=== PATIENT | male | born 1995 | race Caucasian/White ===

== ENCOUNTER 2018-02-21 14:47 | Emergency (ER) | payer BC ==
[2018-02-21] MEDS ORDERED: Ketorolac Tromethamine 30 MG/ML VIAL ONE (16:53)
[2018-02-21 17:03] LABS: #Lymphocytes 0.4 thou/uL (1.20-3.40); #Monocytes 0.3 thou/uL (0.11-0.59); %Basophils 0.4 % (0.0-1.0); %Eosinophils 0.2 % (0.0-10.0); %Lymphocytes 4.6 % (21.0-51.0); %Monocytes 3.8 % (0.0-10.0); Hemoglobin 15.3 g/dL (14.0-18.0); Mean Corpuscular HGB CONC 34.1 g/dL (32.0-36.0); Mean Corpuscular Hemoglobin 30.1 pg (27.0-31.0); Mean Corpuscular Volume 88.3 fl (80.0-94.0); Mean Platelet Volume 7.9 fL (7.4-10.4); Platelet Count 209 thou/uL (130-400); RBC Distribution Width 11.8 % (11.5-14.5); Red Blood Cell (RBC) Count 5.07 mill/uL (4.70-6.10); White Blood Cell (WBC) Count 7.6 thou/uL (4.8-10.8)
[2018-02-21 17:22] LABS: ALT (SGPT) 35 U/L (8-55); AST (SGOT) 31 U/L (5-34); Alkaline Phosphatase 58 U/L (40-150); Anion Gap 14 mmol/L (10-20); BUN (Urea Nitrogen) 11 mg/dL (8.9-20.6); Bilirubin, Total 0.4 mg/dL (0.2-1.2); Calc. Creatinine Clearance 0 mL/min (70-130); Carbon Dioxide 24 mmol/L (22-29); Chloride 104 mmol/L (98-107); Estimated GFR-MDRD Greater than 90; Glucose 110 mg/dL (70-105); Sodium 138 mmol/L (136-145)
--- NOTE | 2018-04-19 14:52 | EKG ---
Test Reason : CP,SOB Blood Pressure : / mmHG Vent. Rate : 112 BPM Atrial Rate : 112 BPM P-R Int : 132 ms QRS Dur : 092 ms QT Int : 314 ms P-R-T Axes : 049 -09 014 degrees QTc Int : 428 ms Sinus tachycardia Borderline ECG Confirmed by TAYLOR BOLAÑOS, WANG [place] ([id number]), editor in chief newspaper JACQUE MYERS ([id number]) on 04/19/2018 2:52:23 PM Referred By: LEONARD Confirmed By:WANG VAZQUEZ MD
== END 2018-02-21 18:00 | disposition home or self-care (01) ==
LOC: ERS 14:47
DX: F41.9 Anxiety disorder, unspecified (principal); R42 Dizziness and giddiness; J02.9 Acute pharyngitis, unspecified; F32.9 Major depressive disorder, single episode, unspecified; T38.0X5A Adverse effect of glucocorticoids and synthetic analogues, initial encounter; T36.0X5A Adverse effect of penicillins, initial encounter; T43.295A Adverse effect of other antidepressants, initial encounter
CPT/HCPCS: 36415; 80053; 85025; 85379; 93005; J1885